=== PATIENT | male | born 1985 | race African-American/Black ===

== ENCOUNTER 2016-12-02 04:28 | Emergency (ER) | payer SELFPAY ==
[~2016-12-02] VITALS: Ht 170.2 cm; Wt 59.9 kg
[~2016-12-02 04:28] MED LIST: ACET-704 PO; CYCL10TA2 PO; HYDR-971 PO; NAPR550T2 PO
[2016-12-02 04:35] VITALS: BP 141/87
== END 2016-12-02 04:52 | disposition left against medical advice (07) ==
LOC: ER 04:28
DX: R09.89 Other specified symptoms and signs involving the circulatory and respiratory systems (principal); Z53.21 Procedure and treatment not carried out due to patient leaving prior to being seen by health care provider

== ENCOUNTER 2017-02-11 21:55 | Emergency (ER) | payer SELFPAY ==
[~2017-02-11] VITALS: Ht 167.6 cm; Wt 59.9 kg
[~2017-02-11 21:55] MED LIST changes: -NAPR550T2 PO; +NAPR550T3 PO
[2017-02-11 22:05] VITALS: BP 143/76
== END 2017-02-11 23:15 ==
LOC: ER 23:15
DX: M54.5 Low back pain (principal); Z53.21 Procedure and treatment not carried out due to patient leaving prior to being seen by health care provider

== ENCOUNTER 2017-05-10 09:39 | Emergency (ER) | payer SELFPAY ==
[~2017-05-10] VITALS: Ht 170.2 cm; Wt 59.9 kg
[~2017-05-10 09:39] MED LIST changes: +NAPR-677 PO; -NAPR550T3 PO
[2017-05-10 09:44] VITALS: BP 151/90
[2017-05-10] MEDS ORDERED: IBUPROFEN 800 MG TABLET. PO ONE (10:15)
[2017-05-10] MEDS ORDERED: DOXY100C2 PO (10:18)
--- NOTE | 2017-05-10 10:18 | PHYS DOC ---
Past Medical History Past Medical History: No Pertinent History Additional Past Medical Histor: CHRONIC ROTAR CUFF PAIN Past Surgical History: No Surgical History Additional Information: 3-4 CIGARETTES PER DAY Alcohol Use: None Drug Use: None Adult General Chief Complaint Chief Complaint: INSECT BITE [facility] HPI Patient is a 31 year old male presents to the emergency department with a history of being bite by a spider last night around 8 pm Patient states he took a Tylenol extra strength last night with no relief of pain. Patient states his tetanus is up to date. He denies fever, chills, nausea or vomiting. Review of Systems Review of Systems Constitutional: Denies fever or chills [] Eyes: Denies change in visual acuity, redness, or eye pain [] HENT: Denies nasal congestion or sore throat [] Respiratory: Denies cough or shortness of breath [] Cardiovascular: No additional information not addressed in HPI [] GI: Denies abdominal pain, nausea, vomiting, bloody stools or diarrhea [] : Denies dysuria or hematuria [] Musculoskeletal: Denies back pain or joint pain [] Integument: Denies rash or skin lesions. spider bite to the left side of his neck Neurologic: Denies headache, focal weakness or sensory changes [] Endocrine: Denies polyuria or polydipsia [] Allergies Allergies Allergies Coded Allergies Type Severity Reaction Last Updated Verified No Known Drug Allergies 10/28/14 No Physical Exam Physical Exam Constitutional: Well developed, well nourished, no acute distress, non-toxic appearance. [] HENT: Normocephalic, atraumatic, bilateral external ears normal, oropharynx moist, no oral exudates, nose normal. [] Eyes: PERRLA, EOMI, conjunctiva normal, no discharge. [] Neck: Normal range of motion, no tenderness, supple, no stridor. [] Cardiovascular:Heart rate regular rhythm, no murmur [] Lungs & Thorax: Bilateral breath sounds clear to auscultation [] Skin: Warm, dry, no erythema, no rash. Area to the left side of his neck that is red and slightly swollen with no drainage. Back: No tenderness Extremities: No tenderness, no cyanosis, no clubbing, ROM intact, no edema. [] Neurologic: Alert and oriented X 3, normal motor function, normal sensory function, no focal deficits noted. [] Psychologic: Affect normal, judgement normal, mood normal. [] Current Patient Data Vital Signs Vital Signs Date Time Temp Pulse Resp B/P (MAP) Pulse Ox O2 Delivery O2 Flow Rate FiO2 05/10/17 09:44 98.0 95 22 100 Room Air 98.0 EKG EKG [] Radiology/Procedures Radiology/Procedures [] Course & Med Decision Making Course & Med Decision Making Pertinent Labs and Imaging studies reviewed. (See chart for details) Recommended Tylenol and Ibuprofen for pain and discomfort. Patient was recommended ice packs to the area. Patient will be provided with antibiotics. Patient provided with discharge instructions, treatment regimen and followup recommendations. Patient was provided with signs and symptoms to return to the emergency department. [] Dragon Disclaimer Dragon Disclaimer This electronic medical record was generated, in whole or in part, using a voice recognition dictation system. Departure Departure Impression: Primary Impression: Insect bite Disposition: HOME, SELF-CARE Condition: STABLE Referrals: NO PCP (PCP) Patient Instructions: Cellulitis, [id number], Insect Bite, [id number] Additional Instructions: Activity as tolerated. Medication as prescribed. Ibuprofen for pain and discomfort. Ice packs or warm packs to the area to help with pain and discomfort. Follow-up with her primary care physician next 3-5 days. Return back to emergency prior signs symptoms become worse. Scripts Doxycycline Hyclate (DOXYCYCLINE HYCLATE) 100 Mg Capsule 1 CAP PO BID, #20 CAP Prov: JOSUE PIPER APRN 05/10/17 JOSUE PIPER APRN May 10, 2017 10:18
== END 2017-05-10 10:36 | disposition home or self-care (01) ==
LOC: ER 09:39
DX: S10.96XA Insect bite of unspecified part of neck, initial encounter (principal); G89.29 Other chronic pain; F17.210 Nicotine dependence, cigarettes, uncomplicated; W57.XXXA Bitten or stung by nonvenomous insect and other nonvenomous arthropods, initial encounter; Y93.89 Activity, other specified; Y99.8 Other external cause status; Y92.89 Other specified places as the place of occurrence of the external cause
CPT/HCPCS: 99283

== ENCOUNTER 2017-07-12 09:35 | Emergency (ER) | payer SELFPAY ==
[~2017-07-12] VITALS: Ht 170.2 cm; Wt 62.6 kg
[~2017-07-12 09:35] MED LIST changes: +DOXY100C2 PO
[2017-07-12 09:39] VITALS: BP 141/97
[2017-07-12] MEDS ORDERED: IBUPROFEN 800 MG TABLET. PO ONE (09:45)
--- NOTE | 2017-07-12 09:50 | PHYS DOC ---
Past Medical History Past Medical History: No Pertinent History Additional Past Medical Histor: CHRONIC ROTAR CUFF PAIN Past Surgical History: No Surgical History Alcohol Use: None Drug Use: None Adult General Chief Complaint Chief Complaint: SHOULDER INJURY HPI HPI Patient is a 31 year old male presents the ED complaining of left shoulder injury times one day. States he was reaching for a laundry basket up above his head and when he grabbed it he felt a pop in his left shoulder. States he had a history of previous rotator cuff injury to his left shoulder. Describes pain as sharp. Rates pain as 8 out of 10. Denies head/neck injury, LOC, headache, chest pain, shortness of breath, blunt trauma or fever. Review of Systems Review of Systems Constitutional: Denies fever or chills [] Eyes: Denies change in visual acuity, redness, or eye pain [] HENT: Denies nasal congestion or sore throat [] Respiratory: Denies cough or shortness of breath [] Cardiovascular: No additional information not addressed in HPI [] GI: Denies abdominal pain, nausea, vomiting, bloody stools or diarrhea [] : Denies dysuria or hematuria [] Musculoskeletal: Complains of left shoulder pain. Denies back pain. Integument: Denies rash or skin lesions [] Neurologic: Denies headache, focal weakness or sensory changes [] Endocrine: Denies polyuria or polydipsia [] Current Medications Current Medications Current Medications Medications (Trade) Dose Ordered Sig/[facility] Start Time Stop Time Status Last Admin Dose Admin Ibuprofen (Motrin) 800 mg 1X ONCE 07/12/17 09:45 07/12/17 09:49 DC 07/12/17 10:00 800 MG Allergies Allergies Allergies Coded Allergies Type Severity Reaction Last Updated Verified No Known Drug Allergies 10/28/14 No Physical Exam Physical Exam Constitutional: Well developed, well nourished, no acute distress, non-toxic appearance. [] HENT: Normocephalic, atraumatic, bilateral external ears normal, oropharynx moist, no oral exudates, nose normal. [] Eyes: PERRLA, EOMI, conjunctiva normal, no discharge. [] Neck: Normal range of motion, no tenderness, supple, no stridor. [] Cardiovascular:Heart rate regular rhythm, no murmur [] Lungs & Thorax: Bilateral breath sounds clear to auscultation [] Abdomen: Bowel sounds normal, soft, no tenderness, no masses, no pulsatile masses. [] Skin: Warm, dry, no erythema, no rash. [] Back: No tenderness, no CVA tenderness. [] Extremities: MILD ANTERIOR LEFT SHOULDER TENDERNESS, no cyanosis, no clubbing, ROM intact, no edema. [] Neurologic: Alert and oriented X 3, normal motor function, normal sensory function, no focal deficits noted. [] Psychologic: Affect normal, judgement normal, mood normal. [] Current Patient Data Vital Signs Vital Signs Date Time Temp Pulse Resp B/P (MAP) Pulse Ox O2 Delivery O2 Flow Rate FiO2 07/12/17 09:39 97.8 97 18 100 Room Air 97.8 EKG EKG [] Radiology/Procedures Radiology/Procedures PROCEDURE: SHOULDER 2+V LEFT Left shoulder, 3 views, 07/12/2017: History: Shoulder injury No fracture or dislocation is identified. The periarticular soft tissues are unremarkable. IMPRESSION: No acute left shoulder abnormality is detected.[] Course & Med Decision Making Course & Med Decision Making Pertinent Labs and Imaging studies reviewed. (See chart for details) []X-ray negative for acute injury. Sling placed. Neurovascular intact post placement. Discussed follow-up with orthopedics in 1-2 days. Provided contact information/education. Discussed reasons to return to the ED. Patient understands and agrees with plan. Dragon Disclaimer Dragon Disclaimer This electronic medical record was generated, in whole or in part, using a voice recognition dictation system. Departure Departure Impression: Primary Impression: Shoulder injury Disposition: 01 HOME, SELF-CARE Condition: STABLE Referrals: NO PCP (PCP) GEORGE REAL MD Patient Instructions: Rotator Cuff Injury Scripts Acetaminophen With Codeine (TYLENOL WITH CODEINE #3 TABLET) 1 Each Tablet 1 TAB PO PRN Q6HRS Y for PAIN, #10 TAB Prov: GIRISH WIGGINS 07/12/17 GIRISH WIGGINS Jul 12, 2017 09:50
--- NOTE | 2017-07-12 10:31 | RAD ---
Left shoulder, 3 views, 07/12/2017: History: Shoulder injury No fracture or dislocation is identified. The periarticular soft tissues are unremarkable. IMPRESSION: No acute left shoulder abnormality is detected.
[2017-07-12] MEDS ORDERED: ACET-704 PO (10:43)
== END 2017-07-12 11:05 | disposition home or self-care (01) ==
LOC: ER 09:35
DX: S49.92XA Unspecified injury of left shoulder and upper arm, initial encounter (principal); G89.29 Other chronic pain; X58.XXXA Exposure to other specified factors, initial encounter; Y93.89 Activity, other specified; Y92.89 Other specified places as the place of occurrence of the external cause; Y99.8 Other external cause status
CPT/HCPCS: 73030; 99284

== ENCOUNTER 2018-01-20 09:37 | Emergency (ER) | payer SELFPAY | END 2018-01-20 10:26 | disposition home or self-care (01) | LOC: ER 09:37 | DX: K08.89 Other specified disorders of teeth and supporting structures (principal); F17.210 Nicotine dependence, cigarettes, uncomplicated; G89.29 Other chronic pain | CPT/HCPCS: 99283 ==

== ENCOUNTER 2019-07-25 11:08 | Emergency (ER) | payer SELFPAY ==
[~2019-07-25] VITALS: Ht 170.2 cm; Wt 57.6 kg
[~2019-07-25 11:08] MED LIST changes: +HYDR-3164 PO; -HYDR-971 PO; +NAPR-514 PO
[2019-07-25] MEDS ORDERED: Percogesic PO (11:26)
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
[2019-07-25 11:31] VITALS: BP 146/93
== END 2019-07-25 11:33 | disposition home or self-care (01) ==
LOC: ER 11:08
DX: S39.011A Strain of muscle, fascia and tendon of abdomen, initial encounter (principal); Z91.19 Patient's noncompliance with other medical treatment and regimen; G89.29 Other chronic pain; F41.9 Anxiety disorder, unspecified; R00.0 Tachycardia, unspecified; W51.XXXA Accidental striking against or bumped into by another person, initial encounter; Y93.89 Activity, other specified; Y92.89 Other specified places as the place of occurrence of the external cause; Y99.8 Other external cause status
CPT/HCPCS: 99282

== ENCOUNTER 2020-08-18 13:57 | Emergency (ER) | payer SELFPAY ==
[~2020-08-18] VITALS: Ht 167.6 cm; Wt 61.0 kg
[~2020-08-18 13:57] MED LIST changes: +Percogesic PO
[2020-08-18 15:17] VITALS: BP 140/90
[2020-08-18] MEDS ORDERED: LIDOCAINE 1% Multi-Dose 20 ML VIAL. INJ ONE (15:30)
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
== END 2020-08-18 16:48 | disposition home or self-care (01) ==
LOC: ER 13:57
DX: S01.81XA Laceration without foreign body of other part of head, initial encounter (principal); F17.200 Nicotine dependence, unspecified, uncomplicated; Z98.890 Other specified postprocedural states; Z88.8 Allergy status to other drugs, medicaments and biological substances; Y08.89XA Assault by other specified means, initial encounter; Y93.89 Activity, other specified; Y92.89 Other specified places as the place of occurrence of the external cause; Y99.8 Other external cause status
CPT/HCPCS: 12014; 99282; J3490

== ENCOUNTER 2021-12-02 11:49 | Emergency (ER) | payer SELFPAY ==
[~2021-12-02 11:49] MED LIST changes: +CYCL10TA19 PO; -CYCL10TA2 PO; -DOXY100C2 PO; +DOXY100C3 PO
== END 2021-12-02 12:25 | disposition left against medical advice (07) ==
LOC: ER 11:49
DX: R09.89 Other specified symptoms and signs involving the circulatory and respiratory systems (principal); Z53.21 Procedure and treatment not carried out due to patient leaving prior to being seen by health care provider